=== PATIENT | male | born 1970 | race Caucasian/White ===

== ENCOUNTER 2018-01-04 10:06 | Emergency (ER) | payer OTHER ==
[~2018-01-04] VITALS: Ht 182.9 cm; Wt 109.1 kg
[~2018-01-04 10:06] MED LIST: ALAVERT10 M1 PO; ALAVERT10 MG PO; IBUPROFEN200 M1 PO; NORCO 325 MG-51 TAB PO; TYLENOL 325MG325 MG PO
[2018-01-04 10:23] VITALS: TEMP 97.6
[2018-01-04] MEDS ORDERED: PRINIVIL10 MG PO (10:28)
[2018-01-04] MEDS ORDERED: XANAX 0.5MG0.5 MG PO (10:29)
[2018-01-04 10:53] LABS: PROTHROMBIN TIME 10.9 SECONDS (9.7-12.8)
[2018-01-04 10:56] LABS: PARTIAL THROMBOPLASTIN TIME 33.4 SECONDS (26.0-37.0)
[2018-01-04 10:59] LABS: ALANINE AMINOTRANSFERASE 37 U/L (21-72); ALBUMIN 4.2 gm/dL (3.5-5.0); ALKALINE PHOSPHATASE 61 U/L (50-136); ANION GAP 17 mmol/L (7-16); AST,SGOT 22 U/L (15-37); BILIRUBIN,TOTAL 0.8 mg/dL (0.0-1.0); BLOOD UREA NITROGEN 13 mg/dL (9-20); CALCIUM 9.7 mg/dL (8.4-10.2); CARBON DIOXIDE 19 mmol/L (22-30); CHLORIDE 106 mmol/L (98-107); CREATININE, serum 0.74 mg/dL (0.66-1.25); GLUCOSE 106 mg/dL (74-106); SODIUM 142 mmol/L (137-145); TOTAL PROTEIN 7.8 gm/dL (6.4-8.2)
[2018-01-04 11:12] LABS: TROPONIN-I < 0.012 ng/mL (0.000-0.034)
[2018-01-04 11:29] LABS: COLLECTION METHOD CLEAN CATCH
[2018-01-04 11:35] LABS: PH 8 (5-8); SQUAMOUS EPITHELIAL None Seen /hpf; URINE APPEARANCE Clear; URINE BACTERIA None Seen /hpf; URINE BILIRUBIN Negative (NEGATIVE); URINE BLOOD Negative (NEGATIVE); URINE COLOR Straw; URINE GLUCOSE Negative (NEGATIVE); URINE KETONE Negative (NEGATIVE); URINE LEUKOCYTE ESTERASE Negative (NEGATIVE); URINE NITRATE Negative (NEGATIVE); URINE PROTEIN(semi-quant) Negative (NEGATIVE); URINE RBC None Seen /hpf; URINE UROBILINOGEN Negative (NEGATIVE)
[2018-01-04 12:59] LABS: BASO % 0.1 % (0.0-2.0); EOS % 0.6 % (0-4.0); GRAN # 5.1 (1.4-6.5); GRAN % 71.7 % (42.2-75.2); HEMOGLOBIN 13.4 g/dl (13.5-18.0); LYMPH # 1.5 (1.2-3.4); LYMPH % 21.7 % (20.0-51.0); MEAN CELL VOLUME 90 fl (80.0-100.0); MEAN CORPUSCULAR HEMOGLOBIN 32 pg (27.0-31.0); MEAN CORPUSCULAR HGB CONC 35 g/dl (33.0-37.0); MEAN PLATELET VOLUME 10.1 fl (7.4-10.4); MONO # 0.4 (0.1-0.6); MONO % 5.2 % (1.7-9.3); PLATELET COUNT 200 K/mm3 (130-400); RED BLOOD COUNT 4.21 M/mm3 (4.20-5.60); REDCELL DISTRIBUTION WIDTH-CV 11.7 % (11.5-14.5)
[2018-01-04] MEDS ORDERED: MAG OX 250 PO (13:06)
[2018-01-04 13:45] VITALS: BP 135/83; PULSE 61
== END 2018-01-04 14:18 | disposition home or self-care (01) ==
LOC: COL.ER 10:06
PROVIDERS: Emergency Medicine
DX: R51 Headache (principal); I10 Essential (primary) hypertension
CPT/HCPCS: J1885; J2250; J2550

== ENCOUNTER 2018-01-10 15:02 | Emergency (ER) | payer OTHER ==
[~2018-01-10] VITALS: Ht 182.9 cm; Wt 111.4 kg
[~2018-01-10 15:02] MED LIST changes: +MAG OX 250 PO; +PRINIVIL10 MG PO; +XANAX 0.5MG0.5 MG PO
[2018-01-10 15:04] VITALS: TEMP 98.6
[2018-01-10 15:25] LABS: BASO % 0.2 % (0.0-2.0); EOS % 0.3 % (0-4.0); GRAN # 6.7 (1.4-6.5); GRAN % 73.7 % (42.2-75.2); HEMATOCRIT 40.4 % (42.0-52.0); HEMOGLOBIN 13.9 g/dl (13.5-18.0); LYMPH # 1.7 (1.2-3.4); LYMPH % 19.2 % (20.0-51.0); MEAN CELL VOLUME 89 fl (80.0-100.0); MEAN CORPUSCULAR HEMOGLOBIN 31 pg (27.0-31.0); MEAN CORPUSCULAR HGB CONC 34 g/dl (33.0-37.0); MEAN PLATELET VOLUME 10.1 fl (7.4-10.4); MONO # 0.5 (0.1-0.6); PLATELET COUNT 207 K/mm3 (130-400); RED BLOOD COUNT 4.56 M/mm3 (4.20-5.60); REDCELL DISTRIBUTION WIDTH-CV 11.9 % (11.5-14.5)
[2018-01-10 15:40] LABS: ALBUMIN 4.4 gm/dL (3.5-5.0); BILIRUBIN,TOTAL 0.9 mg/dL (0.0-1.0); CALCIUM 9.8 mg/dL (8.4-10.2); CREATININE, serum 0.92 mg/dL (0.66-1.25); POTASSIUM 4.2 mmol/L (3.4-5.0); TOTAL PROTEIN 8.1 gm/dL (6.4-8.2)
[2018-01-10 16:29] LABS: C-REACTIVE PROTEIN 0.7 mg/dL (0.0-0.9)
[2018-01-10 16:43] LABS: PROLACTIN 36.2 ng/mL (3.7-17.9)
[2018-01-10 17:21] VITALS: BP 110/70; PULSE 64
== END 2018-01-10 17:23 | disposition home or self-care (01) ==
LOC: COL.ER 15:02
PROVIDERS: Emergency Medicine
DX: R41.82 Altered mental status, unspecified (principal); R51 Headache; I10 Essential (primary) hypertension; Z90.89 Acquired absence of other organs
CPT/HCPCS: J2765; J3010; J3030; J7030